=== PATIENT | female | born 1960 | race Caucasian/White ===

== ENCOUNTER 2017-07-25 14:01 | Inpatient (IN) | payer OTHER ==
[2017-07-25] MEDS ORDERED: diphenhydrAMINE 50 MG/ML VIAL ONE (15:01)
[2017-07-25] MEDS ORDERED: Metoclopramide HCl 10 MG/2 ML VIAL ONE (15:01)
[2017-07-25] MEDS ORDERED: Ketorolac Tromethamine 30 MG/ML VIAL ONE (15:51)
[2017-07-25] MEDS ORDERED: Propofol 200 MG/20 ML VIAL ONE (15:51)
[2017-07-25] MEDS ORDERED: Ondansetron HCl/PF 4 MG/2 ML Vial ONE (15:51)
[2017-07-25] MEDS ORDERED: Glycopyrrolate 0.2 MG/ML 5 ML SYRINGE ONE (15:51)
[2017-07-25] MEDS ORDERED: Lidocaine 1% PF 5 ML VIAL ONE (15:51)
[2017-07-25] MEDS ORDERED: Iothalamate Meglumine 60% 50 ML VIAL FS ONE (18:25)
[2017-07-25] MEDS ORDERED: Fentanyl 100 MCG/2 ML VIAL ONE ×2 (18:49→19:07)
[2017-07-25] MEDS ORDERED: Midazolam HCl 2 mg/2 ml Vial ONE ×2 (18:49→19:07)
[2017-07-25] MEDS ORDERED: Ondansetron HCl/PF 4 MG/2 ML Vial IVP PRN ×2 (21:54→22:12)
[2017-07-25] MEDS ORDERED: Morphine 4 MG/ML VIAL IV PRN ×2 (21:57)
[2017-07-25] MEDS ORDERED: Promethazine HCl 25 MG/ML VIAL SLOW IVP PRN (22:12)
[2017-07-25] MEDS ORDERED: Promethazine HCl 25 MG/ML VIAL IM PRN (22:12)
[2017-07-25] MEDS ORDERED: HYDROmorphone 2 MG/ML VIAL SLOW IVP PRN (22:12)
--- NOTE | 2017-07-25 22:23 | CON ---
DATE OF CONSULTATION: 07/25/2017 DATE OF EVALUATION: 07/25/2017 REQUESTING PHYSICIAN: Dr. Callahan, emergency room physician. HISTORY OF PRESENT ILLNESS: This is a 57-year-old woman who was previously seen 2 days ago following acute onset right upper quadrant abdominal pain associated with nausea. CT scan of the abdomen and pelvis was obtained at that time, which was remarkable for multiple intral uminal gallstones. There was no evidence of acute cholecystitis at the time, radiographically. Portia ent was discharged home on oral analgesics. She presented today with worsening right upper quadrant abdominal pain, this time associated with persistent nausea and nonbilious emesis. She also reports some chills. She also reports some low grade fever, maximum temperature of 100.4 degrees Fahrenheit. Patient denies any diarrhea, hematochezia, or melena. PAST MEDICAL HISTORY: Pertinent for hypothyroidism, gastroesophageal reflux disease, and carpal tunn el syndrome. SURGICAL HISTORY: Pertinent for bilateral carpal tunnel release, surgery I suspect laminectomy of C5 -C6. She also reports having had a , hysterectomy. SOCIAL HISTORY: Patient is , lives at home with her . She admits occasional intake of ethanol in moderate amounts. She denies any cigarette smoking or illicit drug abuse. ALLERGIES: PENICILLIN, BIAXIN, LEVAQUIN. PREHOSPITALIZATION MEDICATIONS: Includes estradiol 2 mg p.o. daily, tramadol 50 mg recently prescrib ed, she takes 1 p.o. q.8 hours p.r.n. pain. REVIEW OF SYSTEMS: A 10-point review of systems essentially unremarkable except for as stated in pas t medical history and chief complaint. PHYSICAL EXAMINATION: GENERAL: This reveals a 57-year-old normally developed woman who is otherwise coherent and interacti ve and appears stated age. Patient is alert and oriented x3, appears to be in no acute distress at t he time of my evaluation. VITAL SIGNS: Includes blood pressure 101/73, pulse is 97, respiratory rate is 18, temperature is 99. 4 degrees Fahrenheit, oxygen saturation 98% on room air. HEENT: Reveals normocephalic and atraumatic. Pupils are equal, round, and reactive to light and acc ommodation. Extraocular muscles are intact bilaterally. She has no sclerae icterus present. Oral m ucosa is pink and moist. No lesions are noted. NECK: Supple. No palpable lymphadenopathy or thyromegaly present. HEART: Reveals regular rate and rhythm, no murmurs or gallops auscultated. LUNGS: Clear to auscultation bilaterally. Breathing is regular and unlabored. ABDOMEN: Soft and obese. She has right upper quadrant tenderness to palpation. She has a positive Plata sign. Liver and spleen are otherwise nonpalpable below costal margins. EXTREMITIES: Reveals 2+ radial and pedal pulses bilaterally. No ankle edema is present. NEUROLOGIC: Reveals no focal deficits present. PERTINENT LABORATORY FINDINGS: Today includes metabolic profile: Sodium 135, potassium 3.6, chlorid e is 101, bicarbonate 24, BUN 8, creatinine 0.78, glucose 128. Total bilirubin which was normal 2 da ys ago, is now 3.1. AST and ALT now 126 and 115 respectively. Serum lipase today is normal at 8 uni ts per liter. CBC with 20,100 white blood cells, hemoglobin 15.3, hematocrit is 43.9, platelet count is 202,000. Differential counts as follows, 92% segmented neutrophils, 3 bands, 4 lymphocytes, and 1 monocyte. PTT and INR noted at 36.3 seconds and 1.2 respectively. I have personally reviewed a CT scan of the abdomen and pelvis which was obtained on 07/23/2017, which was remarkable for multiple i ntraluminal gallstones, no free fluid or pneumoperitoneum present. I have also reviewed the abdomina l ultrasound, which was obtained today remarkable for multiple intraluminal gallstones, common bile d uct, which is markedly dilated for this patient's age at 9 mm in diameter. There is gallbladder wall thickening, but no significant pericholecystic fluid is noted. IMPRESSION: Acute cholecystitis with cholelithiasis and possible choledocholithiasis. RECOMMENDATIONS: 1. GI evaluation for ERCP. 2. Post-ERCP laparoscopic cholecystectomy. I have informed the patient and her of the above findings and recommendations. At surgery, I have also informed them of the risks and benefits of laparoscopic cholecystectomy to in clude, but not limited to bleeding, infection, injury to bile duct or surrounding structures. Patient and her indicated understanding of information given. I have answered their question s. Thank you again, Dr. Callahan for allowing me the opportunity to participate in the care of this portia ent.
--- NOTE | 2017-07-25 23:04 | CON ---
DATE OF CONSULTATION: 07/25/2017 CONSULTING PHYSICIAN: Cam Callahan D.O. REASON FOR CONSULTATION: Cholangitis. HISTORY OF PRESENT ILLNESS: Patient is a 57-year-old female with past medical history of GERD, hypothyroidism, chronic sinus infection, status post treatment for sinus infection for the last 2 weeks, and cholelithiasis, presenting with right upper quadrant abdominal pain and nausea. She was seen in the [place] ER approximately 2-3 days ago with complaints of increased right upper quadrant abdominal pain and noted to have significant cholelithiasis on right upper quadrant ultrasound. However, her laboratory studies at that time were relatively normal with no additional alarm symptoms, so she was ultimately discharged to home with plans to follow up with a surgeon for cholecystectomy as an outpatient. However, she continued to have right upper quadrant abdominal pain that has progressively gotten worse over the last 24 hours. Her pain now characterized as sharp, constant, located in the right upper quadrant and mid epigastric regions, 4-5/10 in severity, worse with palpation/pressure to the region, better with pain medications. Also associated with increased nausea without actual emesis, fever, and shaking chills, abdominal bloating, and eructation. PAST MEDICAL HISTORY: See above. PAST SURGICAL HISTORY: C5/C6 vertebral surgery, x3, hysterectomy, carpal tunnel release, shoulder surgery, foot surgery, and sinuplasty. FAMILY HISTORY: Gallbladder disease, diabetes, breast cancer. SOCIAL HISTORY: Denies tobacco or drug use. Drinks approximately one beer every 6 months. INPATIENT MEDICATIONS: Reviewed. REVIEW OF SYSTEMS: A complete 12 category review of systems was obtained from the patient and it was all negative except for the pertinent positives as listed in the HPI. PHYSICAL EXAMINATION: VITAL SIGNS: Blood pressure 109/46, pulse 119, respiratory rate 22, satting 92 % on room air. GENERAL: Mild distress, lying in a position on the gurney, alert and oriented x4. HEENT: Pupils equal and round, and reactive to light. Extraocular muscles intact. NECK: Supple, with no discernible JVD. CARDIOVASCULAR: Tachycardic rate with no discernible murmurs, gallops or rubs, regular rhythm. RESPIRATORY: Clear to auscultation bilaterally with no discernible wheezes or rales. ABDOMEN: Significant tenderness to palpation in the right upper quadrant and midepigastric region with mild guarding. Normoactive bowel sounds, soft. No hepatosplenomegaly. EXTREMITIES: No cyanosis, clubbing or edema. LABORATORY DATA: CBC with white blood cell count of 20.1, hemoglobin 15.3, hematocrit 43.9, platelets 202. Chemistry with a sodium of 135, potassium 3.6, chloride 101, carbon dioxide 24, BUN 8, creatinine 0.78, glucose 128, AST 126, ALT 115, alkaline phosphatase 123, total bilirubin 3.1, albumin 3.7. IMAGING STUDIES: Right upper quadrant ultrasound obtained on 07/25 at [place] [facility] showing increased gallbladder wall thickening and dilation of the common bile duct to [address] scan of the abdomen and pelvis obtained on 07/23/2017 showing numerous mixed density gallstones, too numerous to count within the gallbladder, compatible with extensive cholelithiasis. No evidence of gallbladder wall thickening seen. The common bile duct is normal size. ASSESSMENT AND PLAN: The patient is a 57-year-old female with past medical history of gastroesophageal reflux disease, hypothyroidism, chronic sinus infections and cholelithiasis, presenting with probable choledocholithiasis. Choledocholithiasis The patient is presenting with a 48-72 hour history of increased right upper quadrant abdominal pain radiating to the mid epigastric region with imaging consistent with cholelithiasis. However, over the last 24 hours, she has had significant worsening of this pain associated with fever, chills, nausea, and increase in LFTs consistent with an obstructive pattern. And while cholecystitis could potentially generate the above laboratory abnormalities, with a total bilirubin of 3.1, it is more concerning for choledocholithiasis. Furthermore, right upper quadrant ultrasound obtained in [place] today also showed gallbladder wall thickening consistent with cholecystitis, but with a common bile duct of 9 mm. With a blood pressure that is borderline hypotensive as well as tachycardia, it is concerning for cholangitis and emergent ERCP is recommended. RECOMMENDATIONS: 1. We will consent the patient for emergent ERCP for possible ascending cholangitis. 2. We would recommend transferring the patient to [facility] for antibiotic therapy for better coverage of gram negatives, but given her allergies to penicillins, could continue unasyn 3g every 6 hours. Will prescribe diphenhydramine 25mg PRN for possible allergic reaction. 3. We would continue IV fluid given possible sepsis. [facility]
[2017-07-25 23:40] VITALS: BMI 37.1
[2017-07-25] MEDS: Sodium Chloride 0.9% 1,000 ML IV SCH (23:59)
[2017-07-25] MEDS ORDERED: Lorazepam 1 MG TAB PO PRN (23:59)
[2017-07-26] MEDS: AMPICILLIN SLOW IVP SCH ×5 (00:07→23:48)
[2017-07-26] MEDS: SULBACTAM SLOW IVP SCH ×5 (00:07→23:48)
--- NOTE | 2017-07-26 00:23 | HP ---
DATE OF ADMISSION: 07/25/2017 CHIEF COMPLAINT: Abdominal pain. HISTORY OF PRESENT ILLNESS: This is a 57-year-old female patient of Dr. Wilberto Bermudez. Amanda echavarria presented to the ER in [place] on late Sunday, early Sunday with right upper quadrant pain and a bdominal bloating after having a ham sandwich and they discovered she had gallstones at that time and had instructed her to contact her primary care doctor later this week and get an appointment to get her gallbladder worked up because ultrasound showed stones. She did not have any evidence on that ul trasound of a stone in the duct at that time. Dr. Bermudez is out this week. She was going to try to c ontact him next week to see him to get that workup started, but today she had much worse pain and als o started developing a fever and she came back into the emergency room and they discovered that she d oes now have a common duct stone, so she was sent here for treatment of that. She is going to have a n ERCP this evening with Dr. Prajapati and plan on a cholecystectomy tomorrow. PAST MEDICAL HISTORY: Positive for surgically induced hypothyroidism after her previous hyperthyroid ism. She has had chronic sinusitis and has some mild intermittent asthma as well as GERD. PAST SURGICAL HISTORY: She had a balloon sinuplasty in the summer of 2016. She has had a bilateral carpal tunnel procedure done in 2004. She had right shoulder impingement surgery in 2002 and 2003. In 2001, she had a hysterectomy. In 1999, she had a left foot neuroma-ectomy. In 1999, she had a di skectomy at C5 and C6. She has had three C-sections in the . MEDICATIONS: Include estradiol 1 mg daily, Singulair 10 mg daily, [place] thyroid 90 mg daily, omepra zole 20 mg daily. She takes p.r.n. nasal steroid spray and p.r.n. albuterol MDI. SOCIAL HISTORY: She is , has three children, does not smoke, has occasional social alcohol in take, no illicit drug use. FAMILY HISTORY: Her father had unknown disease. Mother is still alive, has diabetes and heart disea se. She had one son who is . She did have a grandmother on her side that had breast cancer with mets. ALLERGIES: She is allergic to BIAXIN and CEFDINIR, which causes welts on her mouth. She is allergic to LEVAQUIN with anaphylaxis and hives. She is allergic to PENICILLIN with perioral edema and angio edema. REVIEW OF SYSTEMS: She has had fever, possible chills, slight headache, no visual changes. She tyron es any trouble chewing or swallowing. She has had no chest pain, a mild cough. She denies any hemop tysis or hematemesis. She has had nausea, but no emesis. She has had no diarrhea or constipation. She has had abdominal bloating and abdominal pain, kind of mid upper epigastric area. She denies any dysuria or hematuria. She denies any paresis or paresthesias. She denies any auditory or visual manzano llucinations. Denies any suicidal or homicidal ideations. PHYSICAL EXAMINATION: VITAL SIGNS: Her temperature in the ER was 98.3 with a blood pressure of 115/59, pulse 76, satting 9 6% on room air. GENERAL: She is sitting in bed, cooperative and awake and alert. HEENT: Normocephalic and atraumatic cranium. Pupils are equal, round, reactive to light and accommo dation. Extraocular movements are intact. She has a scant amount of scleral icterus. Mucous membra sima are moist. NECK: Supple, no JVD, no bruits, no thyromegaly. LUNGS: Clear to auscultation bilaterally, no rales, rhonchi or wheezes. HEART: S1, S2, with no rubs, murmurs, or gallops. ABDOMEN: Has tenderness in the right upper quadrant, difficult to say, but most likely a positive Mu rphy's due to the amount of overall tenderness that she has but she does not have guarding. She does not have rebound. She has no hepatosplenomegaly appreciable. Bowel sounds are essentially hypoacti ve. The abdomen is slightly protuberant. GENITOURINARY: Deferred. EXTREMITIES: Show good palpable pulses in all four extremities. No cyanosis, clubbing, or edema. NEUROLOGIC: She is grossly intact. Alert and oriented x4. Cranial nerves II-XII are equal and symm etrical. There are no motor or sensory deficits noted. All DTRs are 2+ and equal. LABORATORY AND X-RAY FINDINGS: White count is 20,000, hemoglobin is 15, hematocrit is 43.9, platelet s of 202, neutrophils at 92%, bands 3%, lymphocytes at 4%. She has an INR of 1.2. Her chemistry alyx ws sodium 135, potassium 3.6, chloride 101, bicarbonate 24, BUN 8, creatinine is 0.78, GFR 76. Gluco se 128, AST is elevated at 126, ALT is elevated at 115. Lactic acid is normal at 0.9. Her lipase is normal at 8, total bilirubin is elevated at 3.1. TSH is normal at 1.3. Free T4 is normal at 1.08. Her UA shows no bilirubin, slight amount of urobilinogen. ASSESSMENT: Acute cholecystitis with choledocholithiasis. PLAN: To be admitted. She is to have an ERCP done immediately and plan on a cholecystectomy in the morning.
--- NOTE | 2017-07-26 02:42 | OP ---
DATE OF PROCEDURE: 07/25/2017 PROCEDURE: Endoscopic retrograde cholangio-pancreatography. PATIENT SUPPORT PARTNER: Senthil Prajapati MD PROCEDURE IN DETAIL: After explaining the risks and benefits of the procedure including risks of bleeding, perforation, infection, pancreatitis, reaction to anesthesia, and pain, informed consent was obtained. The patient was then taken to the endoscopy suite where under general anesthesia, the patient underwent ERCP. A side-viewing scope was then advanced through the mouth into the esophagus, stomach, and second portion of the intestine with the findings detailed below. FINDINGS: Normal appearing mucosa was seen in the gastric fundus, body, and antrum upon limited visualization with the side-viewing scope. Normal mucosa was also seen in the duodenal bulb. A 3-4 cm duodenal diverticulum was seen in the second portion of the duodenum. However the ampulla of Vate was then visualized within the diverticulum itself with attempts to cannulate the ampulla technically difficult. After multiple attempts at cannulating the ampulla, we were unable to do so adequately to access the biliary tree. However , thomas bile was seen emanating from the ampulla and filling the small intestine. At which point, the procedure was terminated prematurely with all equipment was removed and the procedure terminated. IMPRESSION: The patient's small intestinal anatomy not amenable to cannulation of the ampulla via side-viewing endoscope for ERCP. With the appearance of thomas bile, it is unclear if the patient actually has obstruction of the biliary tree. RECOMMENDATIONS: 1. Transfer patient to ICU care bed for continued monitoring overnight, given concern for possible ascending cholangitis. 2. We will place the patient on Unasyn 3 grams q.6 hours for antibiotic prophylaxis secondary to possible ascending cholangitis. 3. We will place the patient on IV fluid administration, normal saline at 125 mL per hour. 4. Continue to maintain n.p.o. status for possible surgical procedure in the morning. 5. We would recommend urgent cholecystectomy with intraoperative cholangiogram to ascertain possibility of choledocholithiasis. [facility]
[2017-07-26] MEDS: Sodium Chloride 0.9% 1,000 ML IV SCH ×3 (04:10→21:56)
[2017-07-26 04:31] LABS: #Lymphocytes 1.2 thou/uL (1.20-3.40); #Neutrophils 11.2 thou/uL (1.40-6.50); %Eosinophils 0.1 % (0.0-10.0); %Lymphocytes 8.7 % (21.0-51.0); %Monocytes 7.5 % (0.0-10.0); %Neutrophils 83.8 % (42.0-75.0); Hemoglobin 11.9 g/dL (12.0-16.0); Mean Corpuscular HGB CONC 33.5 g/dL (32.0-36.0); Mean Corpuscular Hemoglobin 32.4 pg (27.0-31.0); Mean Corpuscular Volume 96.9 fl (81.0-99.0); Mean Platelet Volume 8.9 fL (7.4-10.4); Platelet Count 169 thou/uL (130-400); Red Blood Cell (RBC) Count 3.67 mill/uL (4.20-5.40); White Blood Cell (WBC) Count 13.3 thou/uL (4.8-10.8)
[2017-07-26 04:36] LABS: INR-International Normal Ratio 1.3; Prothrombin Time 16.9 SEC (12.0-14.7)
[2017-07-26 04:50] LABS: ALT (SGPT) 96 U/L (8-55); AST (SGOT) 100 U/L (5-34); Albumin 2.9 g/dL (3.5-5.0); Alkaline Phosphatase 101 U/L (40-150); Anion Gap 11 mmol/L (10-20); BUN (Urea Nitrogen) 7 mg/dL (9.8-20.1); Bilirubin, Direct 1.1 mg/dL (0.1-0.3); Bilirubin, Total 2.1 mg/dL (0.2-1.2); Calc. Creatinine Clearance 140 mL/min (70-130); Calcium 9.4 mg/dL (7.8-10.44); Carbon Dioxide 24 mmol/L (22-29); Chloride 107 mmol/L (98-107); Estimated GFR-MDRD 89; Glucose 114 mg/dL (70-105); Lipase 7 U/L (8-78); Potassium 3.7 mmol/L (3.5-5.1); Protein, Total 5.8 g/dL (6.0-8.3); Sodium 138 mmol/L (136-145)
[2017-07-26] MEDS ORDERED: Sodium Chloride 0.9% 1,000 ML IV SCH (08:15)
[2017-07-26] MEDS ORDERED: diphenhydrAMINE 50 MG/ML VIAL IVP PRN (08:25)
[2017-07-26] MEDS ORDERED: diphenhydrAMINE 25 MG CAP PO PRN (08:26)
[2017-07-26] MEDS ORDERED: FLU VACC QS2017-18 36 mo. & older 0.5 ML SYRINGE IM ONE (09:00)
[2017-07-26] MEDS ORDERED: Fentanyl 250 MCG/5 ML VIAL ONE (10:19)
[2017-07-26] MEDS ORDERED: Iothalamate Meglumine 60% 50 ML VIAL FS ONE (10:27)
[2017-07-26] MEDS ORDERED: Bupivacaine/Epinephrine 0.25% 30 ML VIAL ONE (10:27)
--- NOTE | 2017-07-26 10:51 | PRG ---
DATE OF SERVICE: 07/26/2017 SUBJECTIVE: Ms. Henderson is a 57-year-old woman with acute abdominal pain. She underwent an attempt ed ERCP yesterday which was unsuccessful. Currently, she reports improved abdominal pain. She denies any fevers or chills. She denies any [place] or vomiting. OBJECTIVE: VITAL SIGNS: Includes blood pressure 94/52, pulse is 92, respiratory rate is 26. Maximum temperatur e since admission 98.5 degrees Fahrenheit, oxygen saturation 98% on 1 liter nasal cannula oxygen. HEENT: Reveals normocephalic and atraumatic. Sclerae is anicteric. HEART: Reveals regular rate and rhythm, no murmurs or gallops auscultated. LUNGS: Clear to auscultation bilaterally. Breathing is regular and unlabored. ABDOMEN: Soft and obese. She has moderate tenderness to palpation, no gross rebound tenderness pres ent. Liver and spleen remains nonpalpable below costal margins. NEUROLOGIC: Examination reveals no focal deficits present. LABORATORY DATA: Pertinent laboratory findings today includes CBC with 13,300 white blood cells, hem oglobin 11.9, hematocrit is 35.6, and platelet count is 169,000. Metabolic profile; sodium 138, potassium is 3.7, chloride is 107, bicarbonate 24, BUN 7, creatinine 0 .68, glucose 114, total bilirubin is 2.1, AST and ALT 100 and 96 respectively. Serum lipase is brittany l at 7. IMPRESSION: Acute cholecystitis with cholelithiasis, probable choledocholithiasis. The patient is h emodynamically stable. PLAN: Laparoscopic cholecystectomy with intraoperative cholangiogram. I have advised the patient of the risks and benefits of the proposed surgery. Risks include, but not limited to bleeding, infection, injury to bile duct or surrounding structures. The patient indicate s understanding of the information provided. I did answer all her questions.
[2017-07-26] MEDS ORDERED: Ondansetron HCl/PF 4 MG/2 ML Vial ONE (13:23)
[2017-07-26] MEDS ORDERED: Ketorolac Tromethamine 30 MG/ML VIAL ONE (13:23)
[2017-07-26] MEDS ORDERED: Lidocaine 1% PF 5 ML VIAL ONE (13:23)
[2017-07-26] MEDS ORDERED: Glycopyrrolate 0.2 MG/ML 5 ML SYRINGE ONE (13:23)
[2017-07-26] MEDS ORDERED: Metoclopramide HCl 10 MG/2 ML VIAL ONE (13:23)
[2017-07-26] MEDS ORDERED: Propofol 200 MG/20 ML VIAL ONE (13:23)
[2017-07-26] MEDS ORDERED: Dexamethasone 20 MG/5 ML VIAL ONE (13:23)
[2017-07-26] MEDS ORDERED: traMADol HCl 50 MG TAB PO PRN (14:21)
[2017-07-26] MEDS ORDERED: Fentanyl 100 MCG/2 ML VIAL ONE ×3 (14:44→15:53)
[2017-07-26] MEDS ORDERED: Meperidine HCl/PF 25 MG/ML VIAL SLOW IVP PRN (15:08)
[2017-07-26] MEDS ORDERED: Promethazine HCl 25 MG/ML VIAL IM PRN (15:08)
[2017-07-26] MEDS ORDERED: Ketorolac Tromethamine 30 MG/ML VIAL IVP PRN (15:08)
[2017-07-26] MEDS ORDERED: Ondansetron HCl/PF 4 MG/2 ML Vial IVP PRN (15:08)
[2017-07-26] MEDS ORDERED: Promethazine HCl 25 MG/ML VIAL SLOW IVP PRN (15:08)
--- NOTE | 2017-07-26 15:18 | RAD ---
INTRAOPERATIVE CHOLANGIOGRAM: HISTORY: Cholecystitis. FINDINGS: Intraoperative fluoroscopy was provided for cholangiogram, as performed by Dr. Liu. Spot fluorosco pic images show contrast opacification of the cystic duct remnant and common duct. No filling defect s are apparent. Contrast has passed into the duodenum. Fluoroscopy time equals 16.6 seconds. POS: [facility]
[2017-07-26] MEDS ORDERED: HYDROmorphone 0.5 MG/0.5 ML SYRINGE ONE (16:10)
[2017-07-26] MEDS ORDERED: Midazolam HCl 2 mg/2 ml Vial ONE (16:10)
--- NOTE | 2017-07-26 16:47 | CON ---
DATE OF CONSULTATION: 07/26/2017 HISTORY OF PRESENT ILLNESS: Nancy Henderson is a 57-year-old female, who presented with a several-d ay history of intermittent right upper quadrant pain. She was found to have acute cholecystitis. Ul trasound revealed a stone in the duct. GI was consulted and they had difficulty retrieving the stone . This morning her symptom improved. She is not nauseated or vomiting. She denies any difficulty breathing or chest pain. She is a nonsmoker. PAST MEDICAL HISTORY: 1. Positive for chronic sinus issues. 2. History of arthritis. 3. History of hypothyroidism. 4. History of reactive airway disease. PAST SURGICAL HISTORY: Recent sinus surgery done. She had bilateral carpal tunnel and shoulder surg radha done, hysterectomy, cervical disk surgery done in [place], C-sections several times. ALLERGIES: CEPHALOSPORINS, CIPRO, BIAXIN, PENICILLIN. MEDICATIONS: From home includes Singulair 10, estradiol and thyroid 90 mg a day. This admission, elton echavarria was started on ampicillin/sulbactam. SOCIAL HISTORY: Tobacco and alcohol denies. FAMILY HISTORY: Unremarkable. REVIEW OF SYSTEMS: Ten point negative. PHYSICAL EXAMINATION: VITAL SIGNS: Sats are 90% on 2 liters, temperature 98.7, respiratory rate 14. CHEST: Reveals no crackles, rubs, or wheezing. CARDIAC: Normal S1-S2. No gallops. ABDOMEN: Soft, no masses. LABORATORY DATA: White count 13,000, H and H is 11 and 35, platelet count 69. Electrolytes are norm al. Liver function is abnormal; AST 126, down to 100; ALT 115, down to 96; albumin is 2.9. UA is un remarkable.. LABORATORY AND X-RAY FINDINGS: Chest x-ray shows no acute infiltrates. Ultrasound of the abdomen sh ows gallbladder sludge and wall thickening. IMPRESSION: 1. Acute cholecystitis/cholelithiasis, status post endoscopic retrograde cholangiopancreatography. 2. Hypothyroidism. 3. Recent sinus surgery. At this stage, Pulmonary Critical Care will follow while in the ICU. Await input from Surgery regard ing surgical intervention, otherwise continue IV antibiotics. We will follow. This is a 50-minute consultation time spent with the patient, direct patient care at the bedside.
[2017-07-26] MEDS: Ketorolac Tromethamine 30 MG/ML VIAL IVP SCH ×2 (17:44→23:49)
[2017-07-26] MEDS: Acetaminophen 500 MG TAB PO SCH ×2 (17:45→21:04)
--- NOTE | 2017-07-26 19:32 | OP ---
DATE OF OPERATION: 07/26/2017 PREOPERATIVE DIAGNOSES: 1. Acute cholecystitis with cholelithiasis and probable choledocholithiasis. 2. Status post attempted ERCP. POSTOPERATIVE DIAGNOSES: 1. Acute cholecystitis with cholelithiasis and probable choledocholithiasis. 2. Status post attempted ERCP. PROCEDURES PERFORMED: Laparoscopic cholecystectomy with intraoperative cholangiogram. SURGEON: Jose Liu D.O. ANESTHESIA: General endotracheal. ESTIMATED BLOOD LOSS: 50 mL FLUIDS GIVEN: 1900 mL crystalloids. SPONGE AND INSTRUMENT COUNT: Certified as correct x2. COMPLICATIONS: None apparent at the time of operation. INDICATIONS FOR PROCEDURE: This is a 57-year-old woman who presented with abdominal pain which was r ecurrent in nature. The second emergency room visit was marked by elevated liver function test as we ll as marked leukocytosis. Clinical and radiographic examination was suggestive of acute cholecystit is, cholelithiasis, and choledocholithiasis. The patient underwent an attempted ERCP yesterday witho ut success. She was brought to the operating room today for laparoscopic cholecystectomy with cholan giogram. Findings are consistent with gallbladder in the usual anatomic location, markedly gangrenous with per foration. Cholangiogram revealed no filling defects. DESCRIPTION OF PROCEDURE: Informed consent obtained from the patient who was brought to the operatin g room and placed in supine position. Following general anesthesia, orogastric tube was inserted and placed to wall suction. The abdomen is sterilely prepped and draped in the usual fashion. Skin below the umbilicus was infil trated with 0.25% Marcaine with epinephrine. A small curvilinear infraumbilical incision is made usi ng an 11 scalpel. Umbilical stalk was grasped with Nita's and elevated. Veress needle inserted th rough the incision and placed in the peritoneal cavity through which the abdomen was insufflated with 3 liters of CO2 gas. Intra-abdominal pressure noted at 2 mmHg. Following abdominal insufflation, V eress needle was removed and a 5 mm trocar was introduced using a Visiport under laparoscopy. Laparo scopy confirmed proper placement. No injuries to underlying structures. Additional laparoscopy reve aled the gallbladder in the usual anatomic location completely encased by omental adhesions. Under d irect laparoscopy, a 12 mm epigastric and two 5 mm right lateral subcostal ports were placed after th e overlying skin was infiltrated with 0.25% Marcaine with epinephrine and appropriate incisions made. The patient is placed in the reverse Trendelenburg position, rotated to her left. I introduced the [place] dissector with cautery, using this to take down omental adhesions with good hemostasis. Fu ndus of the gallbladder was revealed. Prestige grasper was introduced through the right lateral subc ostal port grasping the fundus of the gallbladder which was markedly thickened. The wall of the fund us was markedly thickened. The fundus was then retracted cephalad. Omental adhesions were then care fully dissected free from the remainder of the gallbladder. A large amount of bile and extensive fib rinous exudates were immediately noted. There was a 3 mm perforation in the superomedial aspect of t he gallbladder wall. A second Prestige grasper was introduced through the right medial subcostal por t grasping the Herman's pouch which was retracted laterally. The anterior coursing cystic artery wa s dissected free from surrounding structures and divided between clips. Cystic duct was also dissect ed free from surrounding structures. I applied one clip at the junction of the cystic duct and gallb ladder. A cystotomy was made proximal to the securing clip using an EndoShear. Cholangiocatheter wa s introduced in the right upper quadrant. Flushed first with saline and then inserted into the cysti c ductal lumen securing this with one clip. Cholangiogram was completed under fluoroscopy using 11 m L of [place] contrast. No filling defects carbajal noted. Total fluoroscopy time was 16 seconds. Follow ing completion of the cholangiogram, the securing clip was removed. Catheters removed from the perit barth cavity. The cystic duct was then divided between clips, applying two clips proximally and gall bladder was removed from the liver bed using cautery. This was delivered off the abdominal cavity us ing an EndoCatch. Operative site was extensively irrigated with saline. There was some venous ooze from the gallbladder fossa. Hemostasis was achieved readily using a 1 x 2 inch piece of fibula. A # 19 Pablo drain was introduced into the gallbladder fossa and allowed to exit the abdominal cavity thr ough the right lateral subcostal port. The drain was secured to intra-abdominal wall using 2-0 silk suture. Fascia of the epigastric port site was closed using 0 Vicryl suture and Endo closure device under laparoscopy. Finding no other pathology, laparoscopy was terminated. The abdomen was desuffla isis. All ports and instruments were removed and accounted for. Skin incisions closed using 4-0 [place] cryl suture in subcuticular fashion. The patient tolerated the operation without any apparent compli cation and was returned to recovery room in satisfactory condition.
[2017-07-27] MEDS: Acetaminophen 500 MG TAB PO SCH ×4 (02:43→20:29)
[2017-07-27 05:39] LABS: #Lymphocytes 0.6 thou/uL (1.20-3.40); #Monocytes 0.9 thou/uL (0.11-0.59); #Neutrophils 10.2 thou/uL (1.40-6.50); %Basophils 0.3 % (0.0-1.0); %Lymphocytes 5.2 % (21.0-51.0); %Monocytes 7.7 % (0.0-10.0); %Neutrophils 86.8 % (42.0-75.0); Hemoglobin 11.2 g/dL (12.0-16.0); Mean Corpuscular HGB CONC 32.5 g/dL (32.0-36.0); Mean Corpuscular Hemoglobin 31.9 pg (27.0-31.0); Mean Corpuscular Volume 98.2 fl (81.0-99.0); Mean Platelet Volume 8.5 fL (7.4-10.4); Platelet Count 198 thou/uL (130-400); RBC Distribution Width 12.9 % (11.5-14.5); Red Blood Cell (RBC) Count 3.51 mill/uL (4.20-5.40); White Blood Cell (WBC) Count 11.8 thou/uL (4.8-10.8)
[2017-07-27] MEDS: AMPICILLIN SLOW IVP SCH ×4 (05:51→23:41)
[2017-07-27] MEDS: SULBACTAM SLOW IVP SCH ×4 (05:51→23:41)
[2017-07-27] MEDS: Ketorolac Tromethamine 30 MG/ML VIAL IVP SCH (05:51)
[2017-07-27] MEDS: Sodium Chloride 0.9% 1,000 ML IV SCH (06:02)
[2017-07-27 06:11] LABS: ALT (SGPT) 93 U/L (8-55); AST (SGOT) 83 U/L (5-34); Albumin 3.1 g/dL (3.5-5.0); Alkaline Phosphatase 93 U/L (40-150); Anion Gap 11 mmol/L (10-20); BUN (Urea Nitrogen) 9 mg/dL (9.8-20.1); Bilirubin, Direct 0.5 mg/dL (0.1-0.3); Bilirubin, Total 1.1 mg/dL (0.2-1.2); Calc. Creatinine Clearance 138 mL/min (70-130); Calcium 10.4 mg/dL (7.8-10.44); Carbon Dioxide 26 mmol/L (22-29); Chloride 104 mmol/L (98-107); Estimated GFR-MDRD 87; Glucose 127 mg/dL (70-105); Lipase 4 U/L (8-78); Potassium 3.9 mmol/L (3.5-5.1); Protein, Total 6.4 g/dL (6.0-8.3); Sodium 137 mmol/L (136-145)
[2017-07-27] MEDS ORDERED: Ibuprofen 800 MG TAB PO PRN (09:33)
--- NOTE | 2017-07-27 09:40 | PRG ---
DATE OF SERVICE: 07/27/2017 SUBJECTIVE: Ms. Henderson is postoperative day #1, status post laparoscopic cholecystectomy with intr aoperative cholangiogram. She reports adequate pain control. She is tolerating clear liquid diet, p assing flatus, no bowel movement. She has had no fevers or chills overnight. OBJECTIVE: CURRENT VITAL SIGNS: Includes blood pressure 100/64, pulse 66, respiratory rate 16, temperature is 9 7.6 degrees Fahrenheit, and oxygen saturation is 95% on room air. HEENT: Examination reveals normocephalic and atraumatic. Pupils are equal, round, and reactive to l ight and accommodation. External muscles are intact bilaterally. No scleral icterus is present. HEART: Reveals regular rate and rhythm, no murmurs or gallops auscultated. LUNGS: Clear to auscultation bilaterally. Breathing is regular and unlabored. ABDOMEN: Soft and nondistended. She has moderate incisional tenderness to palpation, no gross rebou nd tenderness present. Mina-Green drain returns 50 mL of serosanguineous fluid. LABORATORY DATA: Pertinent laboratory finding includes CBC with decreasing white blood cell count of 11,800, hemoglobin and hematocrit are stable at 11.2 and 34.4 respectively. Platelet count is also stable at 198,000. Metabolic profile: Sodium 137, potassium is 3.9, chloride is 104, bicarbonate is 26, BUN 9, creatinine 0.69, and glucose 127. Total bilirubin is normal now at 1.1. AST and ALT are normalizing at 83 and 93 respectively. Lipase is normal at 4. IMPRESSION: Postoperative day #1 status post laparoscopic cholecystectomy with a normal intraoperati ve cholangiogram. PLAN: 1. Continue pain management and antibiotic therapy. 2. The patient would be discharged home tomorrow after bowel movement with oral antibiotics given re cent perforated gallbladder with bile peritonitis. 3. We will increase activity and saline lock at this time. The patient indicates understanding of i nformation given. I answered her questions.
[2017-07-27] MEDS: traMADol HCl 50 MG TAB PO PRN ×2 (13:15→23:53)
--- NOTE | 2017-07-27 16:47 | PRG ---
DATE OF SERVICE: 07/27/2017 SUBJECTIVE: The patient is doing well overnight with no post procedure complications from laparoscopic cholecystectomy. Today, she states that she continues to have some mild abdominal soreness in the right upper quadrant but is otherwise asymptomatic. Currently, denies any nausea, vomiting, fevers, chills, shortness of breath, dysphagia, or odynophagia. She is passing gas but has not yet been able to have a bowel movement. OBJECTIVE: VITAL SIGNS: Current temperature 97.6, pulse 72, blood pressure 107/70, respiratory rate 20, satting 96% on room air. GENERAL: No acute distress, alert and oriented x4. CARDIOVASCULAR: Regular rate and rhythm with no discernible murmurs, gallops, or rubs. RESPIRATORY: Clear to auscultation bilaterally with no wheezes or rales. ABDOMEN: Mild tenderness to palpation of the right upper quadrant with a DENNIS drain seen exiting in the right abdomen. Normoactive bowel sounds, soft, nondistended. EXTREMITIES: No cyanosis, clubbing, or edema. ASSESSMENT: The patient is a 57-year-old female with past medical history of gastroesophageal reflux disease, hypothyroidism, chronic sinus infections, and cholelithiasis, presenting with gangrenous cholecystitis with perforation and bile peritonitis. Cholelithiasis with perforation The patient initially presented with a 48-72 hour history of increased right upper quadrant abdominal pain radiating to the mid epigastric region and imaging consistent with cholelithiasis. On admission, she had significant worsening of the pain when compared to previous with laboratory studies at that time consistent with cholecystitis and possible choledocholithiasis. ERCP performed on 07/25/2012 was not able to adequately cannulate the ampulla and further evaluate the biliary tree. She was subsequently taken for urgent laparoscopic cholecystectomy on 07/26/2017 with findings of gallbladder perforation and bile peritonitis, now status post operative day #1 and doing well with only complaints of mild right upper quadrant abdominal pain. Intraoperative cholangiogram obtained at the time of the operation did not show any evidence of choledocholithiasis. Per laboratory review, her LFTs have steadily been down trending further running credence towards lack of stones within the biliary tree. RECOMMENDATIONS: 1. Further ERCP is not indicated at this time given normalization of LFTs with laparoscopic cholecystectomy and lack of filling defects on IOC 2. We will defer to the primary team for antibiotic choice and pain control. We will sign off at this time. Please call with any additional questions. MTDD
--- NOTE | 2017-07-27 17:22 | CON ---
DATE OF CONSULTATION: 07/27/2017 REASON FOR CONSULTATON: Recommendations regarding oral antimicrobial therapy in the face of reported allergy. HISTORY OF PRESENT ILLNESS: A 57-year-old who has a history of hypothyroidism and Graves' disease as well as previous anaphylactic reaction to either penicillin or quinolone in the past, who was admitted with abdominal pain. Abnormal liver function tests initially concern with cholangitis was presented and the patient had an attempted ERCP, which was not successful. Eventually ended up with laparoscopic cholecystectomy with pathology proven acute cholecystitis, but no evidence of obstruction of the biliary duct. The patient has a DENNIS drain in place and is feeling generally better. She has received 6 doses of Unasyn thus far since admission without any reactions. Denies any headaches, visual symptoms, sore throat, odynophagia, or dysphagia. No cough or sputum production or chest pain. A little bit of abdominal tenderness at the site of the surgical procedure and the DENNIS drain. No bladder symptoms. No genital symptoms. No joint symptoms. No neurological symptoms. PAST MEDICAL HISTORY: Hypothyroidism with surgically induced hypothyroidism, sinusitis with prior sinuplasty, GERD, history of anaphylactic reaction following administration of penicillin/levofloxacin. SURGICAL HISTORY: Includes also carpal tunnel surgery, hysterectomy, diskectomy , C-sections. MEDICATIONS: Estradiol, Singulair, thyroid replacement, omeprazole. Currently receiving Tylenol, Unasyn, Benadryl, Motrin, Ativan, Zofran, and tramadol. SOCIAL HISTORY: , never smoker. FAMILY HISTORY: Noncontributory. ALLERGIES: They stated anaphylactic reaction to either PENICILLIN or LEVOFLOXACIN as well as urticarial reaction to BIAXIN and CEFDINIR. PHYSICAL EXAMINATION: VITAL SIGNS: Essentially normal since admission. SKIN: Shows the DENNIS exit site in the right upper quadrant, peripheral IV access. No lymphadenopathy. HEENT: Ocular movements are conjugate. Sclerae white. Pupils are equal. Oral cavity is normal. NECK: Supple. LUNGS: With symmetric breath sounds with faint inspiratory crackles, right base , no wheezing. HEART: S1, S2, regular rate. No S3 or S4. ABDOMEN: Soft with mild tenderness in the right side. No distention. No bowel sounds are present. No bladder distention. EXTREMITIES: Moves all extremities equally. LABORATORY DATA: White cell count 11.8, hemoglobin 11, platelets 198 with 86% neutrophils. INR 1.3. Sodium 137, creatinine 0.69, bilirubin down to 1.1. There is no microbiology specimen submitted and the pathology of the surgical specimen demonstrated acute cholecystitis with ulceration and necrosis. The operative report was reviewed and the cystic duct was dissected free. Cystostomy was made. Cholangiogram catheter introduced and flushed. Cholangiogram completed. No filling defects were noted. Catheter is removed from the peritoneal cavity. The wall of the gallbladder was found to be thickened. There were some omental adhesions that were carefully dissected from the remainder of the gallbladder. There was a 3 mm perforation in the superior medial aspect of the gallbladder wall. ASSESSMENT: 1. Hypothyroidism. 2. Acute cholecystitis, status post cholecystectomy with normal cholangiogram 3. Evidence of the area of perforation. 4. DENNIS drain. 5. Various reported allergies in the past history. DISCUSSION: Evidently, the patient has not reacted to the Unasyn administered and will transition her to oral Augmentin for discharge planning given for approximately 10 days. The patient says we do not have microbiology from the site. There is a risk of failure of therapy since resistant pathogens are sometimes seen in this kind of situation and she should be aware of the possibility of recrudescence of inflammatory process. Evidently, if there is recrudescence, then she will need a reevaluation with CT scan and may be intravenous therapy at that moment. Hopefully that is not going to be the case , but I am not concerned with a reaction to the Augmentin since the patient has tolerated very well to Unasyn here for many doses. MTDD
[2017-07-28] MEDS: Acetaminophen 500 MG TAB PO SCH ×2 (02:00→08:57)
[2017-07-28] MEDS: AMPICILLIN SLOW IVP SCH (05:32)
[2017-07-28] MEDS: SULBACTAM SLOW IVP SCH (05:32)
[2017-07-28] MEDS ORDERED: diphenhydrAMINE 25 MG CAP PO SCH (09:00)
[2017-07-28] MEDS ORDERED: Amoxicillin/Potassium Clav 875 MG TAB PO SCH (09:00)
[2017-07-28] MEDS: traMADol HCl 50 MG TAB PO PRN (10:31)
[2017-07-28] MEDS ORDERED: Polyethylene Glycol 3350 17 GM Packet PO PRN (10:59)
[2017-07-28] MEDS ORDERED: Docusate 100 MG CAP PO PRN (10:59)
[2017-07-28] MEDS ORDERED: Docusate (Surfak) 240 MG CAP PO SCH (11:00)
[2017-07-28 12:34] VITALS: BP 123/75; TEMP 97.9
--- NOTE | 2017-07-28 14:00 | PRG ---
DATE OF SERVICE: 07/28/2017 SUBJECTIVE: Ms. Henderson is a 57-year-old woman, who is 2 days status post laparoscopic cholecystect jai with intraoperative cholangiogram. The patient is awake and alert. She reports adequate pain co ntrol. She is passing flatus and tolerating a general diet. OBJECTIVE: VITAL SIGNS: Includes blood pressure 123/75, pulse 60, respirations 20, temperature is 97.9 degrees Fahrenheit, oxygen saturation 96% on room air. HEENT: Reveals normocephalic and atraumatic. Pupils equal, round, reactive to light and accommodati on. HEART: Reveals regular rate and rhythm, no murmurs or gallops auscultated. LUNGS: Clear to auscultation bilaterally. Breathing is regular and unlabored. ABDOMEN: Soft and nondistended. She has minimum incisional tenderness to palpation with no gross re bound tenderness present. Mina-Green drain returned a moderate amount of serous fluid. Mina-P ratt drain was removed without incident. NEUROLOGIC: Reveals no focal deficits present. IMPRESSION: Postoperative day #2, status post laparoscopic cholecystectomy with normal intraoperati ve cholangiogram. PLAN: 1. The patient is stable enough to go home today. 2. She will be discharged home to follow up with me in the Surgery Clinic in 2 weeks. 3. She is to call me with any questions or problems including exacerbation of abdominal pain, intole patricia to oral intake or any fever in excess of 101 degrees Fahrenheit. The patient indicates underst anding of the information given. I have answered her questions. The patient has expressed deep grati tude for the care rendered to her during this hospitalization and surgery.
--- NOTE | 2017-07-29 20:19 | DIS ---
DATE OF ADMISSION: 07/25/2017 DATE OF DISCHARGE: 07/28/2017 PRIMARY CARE PHYSICIAN: Wilberto Bermudez MD CHIEF COMPLAINT: Abdominal pain. HISTORY OF PRESENT ILLNESS: Right upper quadrant pain after having ham sandwich, history of prior ga llstones on ultrasound presented to the emergency department. Ultrasound in the emergency department found a blocking common duct stone. ERCP was attempted by Dr. Prajapati without success. Dr. Liu of Surgery was consulted for cholecystectomy. HOSPITAL COURSE: Upon removal of gallbladder, was found to be grossly infected. A drain was placed in the postoperative period. The patient was placed on IV antibiotics including Unasyn. The patient with noted allergies, prior anaphylaxis; however, this was thought to be secondary to fluoroquinolon es. The patient was placed on Benadryl prophylactically while on penicillins and tolerated it very w ell. Dr. Garnica was consulted for his opinion given prior anaphylaxis and antibiotic allergies. Dwayne mmended Augmentin for continuation of outpatient treatment of infected gallbladder. The patient tole rated the first dose in the hospital floor well, was passing good flatus, tolerating diet, ambulating well, and was discharged home. CONSULTATIONS: 1. Gastroenterology, Dr. Valenzuela. 2. General Surgery, Dr. Liu. 3. Dr. Garnica, Infectious Disease. DISCHARGE MEDICATIONS: Include Augmentin 875, 1 tab p.o. b.i.d. for 7 days; Benadryl 25 mg 1 tab p.o . q.4 hours p.r.n.; docusate sodium 100 mg 1 tab p.o. b.i.d. p.r.n. constipation; estradiol 1 mg p.o. daily; Motrin 800 mg 1 tab p.o. q.8. hours p.r.n.; Singulair 10 mg 1 tab p.o. daily; [place] Thyroid 90 mg 1 tab p.o. daily; Ultram 50 mg 1 tab p.o. q.6. hours p.r.n. pain. DISCHARGE ACTIVITY: As tolerated. DISCHARGE DIET: Regular. FOLLOWUP: With Dr. Wilberto Bermudez in 7-10 days postoperatively. DISCHARGE CONDITION: Good.
== END 2017-07-28 15:14 | disposition home or self-care (01) | DRG 417 ==
LOC: ERS 14:01 → SDC/OP 19:00 → CCU 19:30 → ONC 07-26 15:44 → SURG A 07-26 16:54
PROVIDERS: ADMIT Family Medicine; ATTEND Family Medicine
PROC: 0FJB8ZZ Inspection of Hepatobiliary Duct, Via Natural or Artificial Opening Endoscopic (ICD-10-PCS; 2017-07-25)
PROC: 0FT44ZZ Resection of Gallbladder, Percutaneous Endoscopic Approach (ICD-10-PCS; principal; 2017-07-26)
PROC: BF131ZZ Fluoroscopy of Gallbladder and Bile Ducts using Low Osmolar Contrast (ICD-10-PCS; 2017-07-26)
DX: K80.62 Calculus of gallbladder and bile duct with acute cholecystitis without obstruction (principal); K65.3 Choleperitonitis; J32.9 Chronic sinusitis, unspecified; Z90.710 Acquired absence of both cervix and uterus; E03.9 Hypothyroidism, unspecified
CPT/HCPCS: 36415; 47532; 74330; 76000; 80048; 80076; 83690; 85025; 88304; 94640; 96361; 96374; 96375; A4216; J0295; J1100; J1170; J1200; J1885; J2001; J2250; J2270; J2405; J2704; J2765; J3010; J7620; Q9961

== ENCOUNTER 2017-12-04 11:52 | Outpatient (CLI) | payer OTHER | END 2017-12-04 11:53 | disposition home or self-care (01) | LOC: BICMAMMO 11:52 | PROVIDERS: ATTEND Family Medicine | DX: Z12.31 Encounter for screening mammogram for malignant neoplasm of breast (principal); Z80.3 Family history of malignant neoplasm of breast | CPT/HCPCS: 77063; 77067 ==

== ENCOUNTER → 2018-05-30 | Day surgery (SDC) | payer OTHER ==
[2018-05-29 11:32] VITALS: BMI 35.5
[~2018-05-30] MED LIST: Bacitracin Zinc Ointment 30 gm TUBE ONE; Fentanyl 100 MCG/2 ML VIAL ONE; HYDROcodone/Acetaminophen 5/325 mg Tablet ONE; Lidocaine 1% w/Epinephrine 1:100K 30 ML VIAL ONE; Midazolam HCl 2 mg/2 ml Vial ONE; Ondansetron PF 4 MG/2 ML Vial ONE; Oxymetazoline HCl 0.05% ( 15 ML ) ONE; methylPREDNISolone Acetate 40 mg/ml Vial ONE
--- NOTE | 2018-05-30 15:47 | EKG ---
Test Reason : PREOP Blood Pressure : / mmHG Vent. Rate : 060 BPM Atrial Rate : 060 BPM P-R Int : 136 ms QRS Dur : 092 ms QT Int : 402 ms P-R-T Axes : 041 006 016 degrees QTc Int : 402 ms Normal sinus rhythm Normal ECG No previous ECGs available Confirmed by NYASIA LUA ([id number]) on 05/30/2018 3:47:07 PM Referred By: DIANE Confirmed By:NYASIA LUA
--- NOTE | 2018-06-03 08:38 | OP ---
PREOPERATIVE DIAGNOSES: Chronic sinusitis, chronic facial pain, and chronic cough. POSTOPERATIVE DIAGNOSES: Chronic sinusitis, chronic facial pain, and chronic cough. PROCEDURES PERFORMED: 1. Bilateral nasal endoscopy with maxillary antrostomy. 2. Bilateral nasal endoscopy with total ethmoidectomy. 3. Bilateral nasal endoscopy with frontal sinusotomy. 4. Bilateral nasal endoscopy with sphenoidotomy. 5. Bilateral nasal endoscopy with submucosal dissection of the inferior turbinates. 6. Septoplasty. PROCEDURE IN DETAIL: After consent was obtained, the patient was identified, brought to the operatin g room, and placed on the operating room table in the supine position. Consent was obtained, notifyi ng the patient of the possibility of additional infections, bleeding, brain injury, and eye/orbital i njury. The patient was placed on the operating room table, and general endotracheal anesthesia and intravenous access was obtained. The patient was then positioned, prepped and draped for endoscopic sinus surgery. Nasal preparation included trimming nasal vestibular hairs and spraying in topical Af rin. We then placed Afrin topical solution on nasal pledgets and strategically located them intranas ally. The perinasal mucosa was injected with 1% lidocaine with 1:100,000 epinephrine in the submucop erichondrial plane of the septum, lateral nasal wall, and anterior to the uncinate. The patient was then prepped and draped in a sterile fashion and positioned for endoscopic sinus surgery. Endoscopic Sinus Surgery: With the 0-degree endoscope, the patient underwent systematic nasal endosc opy. There were no suspicious internasal masses or lesions identified. We then focused our attentio n to the osteomeatal complex region under the middle turbinate. At this point, we then turned our at tention to the contralateral side and proceeded. Maxillary Antrostomy: The uncinate was then identified and the extent of the uncinate was appreciate d by out-fracturing the uncinate with the ball-tip probe. We then used the sickle blade to disarticu late the uncinate from the lateral nasal wall. This was then removed with straight biting and upbiti ng punches with the remaining shrouds of mucosa and bony septum removed with the micro-debrider. The natural os of the maxillary sinus was then identified and enlarged with the maxillary punches and ba ck biting forceps. At this point, we then turned our attention to the contralateral side and proceed ed. Total Ethmoidectomy: The anterior face of the ethmoid bulla was entered and with the micro-debrider, dissection continued posteriorly to the ground lamella. The limits of dissection included the inser tion of the middle turbinate, medial orbital wall, and base of skull. We similarly identified the fr ontal recess and removed shrouds of bone and debris in that region to obtain patency into the agger n asi region and frontal recess. We then entered the ground lamella and its anteroinferior aspect and proceeded posteriorly, opening the posterior ethmoid air-cell system. Again, the limits of dissectio n included the base of skull and medial orbital wall. At the completion of the case, [place] keel splin ts were placed in the ethmoid cavities after the ethmoidectomy. At this point, we then turned our at tention to the contralateral side and proceeded. There were no complications. Sphenoidotomy: The anterior face of the sphenoid was identified and entered in its extreme anteroinf erior aspect. A sphenoid punch was then used to enlarge the sphenoidotomy and no injury to the optic nerve or internal carotid artery occurred. At this point, we then turned our attention to the contralateral side and proceeded. Outfracture & Cautery of the Inferior Turbinates: The inferior turbinates were visualized with a 0-d egree endoscope and outfractured with a Rowley elevator. The inferior medial aspect was cauterized wi th the electrocautery. Hemostasis was obtained. After adequate airway was established, we turned our attention to the contralateral side and used a similar procedure. Again, a Reese elevator was used to outfracture inferior turbinates under endoscopic visualization. With a suction cautery, the free inferior medial aspect was cauterized under direct visualization along the length of the inferior tur binate. At this point, we then turned our attention to the contralateral side and proceeded. Septoplasty: After local anesthesia was infiltrated into the submucoperichondrial plane, a standard Nhan incision was made with a #15 blade down to the level of the septal cartilage. The caudal charity vator was used to elevate the mucoperichondrium from the underlying cartilage. We then proceeded bey ond the bony cartilaginous junction and elevated the bony periosteum as well. Great attention was pa id to the spur to prevent rent formation in the septal flap. A transcartilaginous incision was then m sofia, while preserving an adequate dorsal and caudal cartilaginous strut for tip support. The deforme d cartilage was removed and disarticulated from the bony cartilaginous junction and maxillary crest. This was placed in saline and would later be crushed and returned to the mucoperichondrial envelope. We then elevated the contralateral periosteum from the bony cartilaginous region and removed the de formed portions of the bone and bony spurs. The cartilage was then crushed and placed back into the mucoperichondrial envelope and the mucosa was re-approximated with a quilting stitch composed of rapi dly absorbent gut suture. The [place] incision was also closed with interrupted gut suture. At the completion of the case, Andino splints were placed and suture secured to the caudal septum. The patient tolerated the procedure well and was discharged to the recovery room in stable condition prior to return to the preoperative Day Stay with ultimate discharge home. Prescriptions for pain me dication and antibiotics were provided. The patient received intramuscular Depo-Medrol during the ca se.
== END ==
LOC: SDC 12:10
PROVIDERS: ATTEND Specialist
PROC: 099X8ZZ Drainage of Left Sphenoid Sinus, Via Natural or Artificial Opening Endoscopic (ICD-10-PCS; principal; 2018-05-30)
PROC: 099R8ZZ Drainage of Left Maxillary Sinus, Via Natural or Artificial Opening Endoscopic (ICD-10-PCS; principal; 2018-05-30)
PROC: 09TV8ZZ Resection of Left Ethmoid Sinus, Via Natural or Artificial Opening Endoscopic (ICD-10-PCS; principal; 2018-05-30)
PROC: 099Q8ZZ Drainage of Right Maxillary Sinus, Via Natural or Artificial Opening Endoscopic (ICD-10-PCS; principal; 2018-05-30)
PROC: 09TU8ZZ Resection of Right Ethmoid Sinus, Via Natural or Artificial Opening Endoscopic (ICD-10-PCS; principal; 2018-05-30)
PROC: 099T8ZZ Drainage of Left Frontal Sinus, Via Natural or Artificial Opening Endoscopic (ICD-10-PCS; principal; 2018-05-30)
PROC: 09TL8ZZ Resection of Nasal Turbinate, Via Natural or Artificial Opening Endoscopic (ICD-10-PCS; principal; 2018-05-30)
PROC: 099S8ZZ Drainage of Right Frontal Sinus, Via Natural or Artificial Opening Endoscopic (ICD-10-PCS; principal; 2018-05-30)
PROC: 099W8ZZ Drainage of Right Sphenoid Sinus, Via Natural or Artificial Opening Endoscopic (ICD-10-PCS; principal; 2018-05-30)
DX: J32.8 Other chronic sinusitis (principal); J34.3 Hypertrophy of nasal turbinates; J34.2 Deviated nasal septum; E03.9 Hypothyroidism, unspecified; Z79.899 Other long term (current) drug therapy; Z88.1 Allergy status to other antibiotic agents
CPT/HCPCS: 36415; 85014; 93005; 93010; 96374; J1030; J2001; J2250; J2405; J3010

== ENCOUNTER 2019-09-30 13:42 | Emergency (ER) | payer OTHER ==
--- NOTE | 2019-09-30 14:35 | RAD ---
PA AND LATERAL VIEWS CHEST: 09/30/19 HISTORY: Fever and cough. COMPARISON: 06/02/19. The heart size is normal. The lungs are expanded without lobar consolidation, pneumothoraces, or pleu ral effusions. There are degenerative changes in the spine. IMPRESSION: No radiographic evidence of acute cardiopulmonary process. POS: [facility]
[2019-09-30] MEDS ORDERED: Acetaminophen 500 MG TAB ONE (15:15)
== END 2019-09-30 15:18 | disposition home or self-care (01) ==
LOC: ERS 13:42
DX: B34.9 Viral infection, unspecified (principal); E03.9 Hypothyroidism, unspecified; K21.9 Gastro-esophageal reflux disease without esophagitis
CPT/HCPCS: 71046; 87804; J7620

== ENCOUNTER 2020-08-31 16:01 | Outpatient (CLI) | payer OTHER ==
--- NOTE | 2020-08-31 16:19 | RAD ---
Right hip 2 views: 08/31/2020 COMPARISON: None HISTORY: Worsening right hip pain, no history of recent injury FINDINGS: Stippled increased density noted within the bowel content. No acute fracture or evidence of dislocation. Mild superior joint space narrowing and mild acetabular osteophyte formation involving the right hip. Lower lumbar spine facet hypertrophy is noted, right greater than left, most prominent at the L5-S1 level. There are degenerative changes at the pubic symphysis. IMPRESSION: Degenerative change. No acute osseous abnormality.
== END 2020-08-31 16:02 | disposition home or self-care (01) ==
LOC: BICRAD 16:01
PROVIDERS: ATTEND Family Medicine
DX: M25.551 Pain in right hip (principal); M16.11 Unilateral primary osteoarthritis, right hip

== ENCOUNTER 2021-03-29 10:50 | Outpatient (CLI) | payer OTHER | END 2021-03-29 10:51 | disposition home or self-care (01) | LOC: BICMAMMO 10:50 | PROVIDERS: ATTEND Family Medicine | DX: Z12.31 Encounter for screening mammogram for malignant neoplasm of breast (principal); Z80.3 Family history of malignant neoplasm of breast | CPT/HCPCS: 77063; 77067 ==

== ENCOUNTER 2025-02-27 09:34 | Outpatient (CLI) | payer MEDICARE | END 2025-02-27 09:35 | disposition home or self-care (01) | LOC: BICMAMMO 09:34 | PROVIDERS: ATTEND Family Medicine | DX: Z78.0 Asymptomatic menopausal state (principal); M85.851 Other specified disorders of bone density and structure, right thigh; M85.852 Other specified disorders of bone density and structure, left thigh | CPT/HCPCS: 77080 ==